=== PATIENT | female | born 1975 | race Caucasian/White ===

== ENCOUNTER → 2020-10-28 15:54 | Outpatient (CLI) | payer BC, SELFPAY ==
[2016-01-22 10:48] VITALS: BMI 32.0
[2020-10-28 16:00] LABS: Bacteria 0 SEEN /hpf (None Seen); Mucous, Urine 0 SEEN /hpf (<or=2+); Red Blood Cells-Urine 0 SEEN /hpf (0-5); Squamous Epithelial Cells - UA 0 SEEN /hpf (5-10); White Blood Cells 0 SEEN /hpf (0-5)
[2020-10-28 17:45] LABS: Absolute Lymphocyte Count 2.29 X10^3/uL (0.83-4.51); Basophil# 0.04 X10^3/uL; Basophil% 0.5 % (0-1); Eosinophil# 0.12 X10^3/uL; Eosinophils% 1.5 % (0-5); Hematocrit 39.1 % (37-47); Hemoglobin 12.9 g/dL (12.0-15.0); Lymphocyte # 2.29 X10^3/ul (4.0); Mean Corpuscular Hgb 29.7 pg (27.0-32.0); Mean Corpuscular Volume 90.1 fL (81-99); Mean Platelet Vol. 9.7 fl (6.2-12.0); Monocyte% 5.1 % (0-10); NRBC Flagged by Analyzer 0 % (0-5); Neutrophil # 5.03 X10^3/uL (2.7-7.7); Neutrophil % 63.6 % (47-70); Platelet Count 370 K/mm3 (150-450); RBC Distribution Width CV 12.8 % (11.6-14.6); RBC Distribution Width SD 42.6 fl (35.1-43.9); Red Blood Count 4.34 M/mm3 (4.2-5.4); White Blood Count 7.9 K/mm3 (4.4-11.0)
[2020-10-28 17:49] LABS: Color, Urine Yellow (Yellow); Glucose, Dipstick Normal (Normal); Ketone-Dipstick Negative (Negative); Leukocyte Esterase-Dipstick Negative /ul (Negative); Nitrite-Dipstick Negative (Negative); Occult Blood-Urine Negative /ul (Negative); Protein-Dipstick Negative (Negative); Specific Gravity, Urine 1.015 (1.002-1.030); Urine Bilirubin Dipstick Negative (Negative); Urine Clarity Clear (Clear); Urine Urobilinogen Normal (Normal)
[2020-10-28 18:24] LABS: ALB/GLOB Ratio 1.2 RATIO (0.9-2.4); AST(SGOT) 18 U/L (15-37); Alanine Aminotransfer ALT/SGPT 34 U/L (13-56); Alkaline Phosphatase 92 U/L (45-117); Anion Gap 7 (5-15); BUN 9 mg/dL (7-18); BUN/Creat Ratio 9.8 RATIO (10-20); Calcium,Total 9.2 mg/dL (8.5-10.1); Chloride 107 mmol/L (98-107); Cholesterol 211 mg/dL (200); Creatinine, Serum 0.91 mg/dL (0.55-1.02); EST Glomerular Filtration Rate 70 mL/min (>60); Est Glom Filt Rate - Afr Amer 85 mL/min (>60); Globulin 3.3 g/dL (2.2-4.2); Glucose 90 mg/dL (74-106); High Density Lipoprotein 36 mg/dL; Magnesium 2.1 mg/dL (1.6-2.6); Potassium 3.6 mmol/L (3.5-5.1); Protein, Total 7.3 g/dL (6.4-8.2); Sodium Level 141 mmol/L (136-145); Thyroid Stim Hormone (TSH) 0.63 uIU/mL (0.358-3.74); Triglycerides 244 mg/dL; Very Low Density Lipoprotein 49 mg/dL (5-40)
== END ==
PROVIDERS: PCP Family Medicine; Visit Provider Family Medicine
DX: I10 Essential (primary) hypertension (principal)
CPT/HCPCS: 80053; 80061; 81001; 83735; 84443; 85025

== ENCOUNTER → 2020-10-31 09:58 | Outpatient (CLI) | payer BC, SELFPAY ==
[2020-10-30 10:41] VITALS: BMI 37.0
--- NOTE | 2020-10-31 10:10 | US_ITS ---
STUDY: RENAL ULTRASOUND - COMPLETE REASON FOR EXAM: Female, 44 years old. HTN TECHNIQUE: Ultrasound evaluation of the kidneys was performed with real-time and static avitia-scale imaging. COMPARISON: None. FINDINGS: RIGHT KIDNEY: Normal location of the right kidney, which is normal in size. The right kidney measures 9.8 cm. There is a normal cortex of the right kidney. The renal cortex measures 1.6 cm. There is no right renal mass or cyst. There are no right renal calculi. There is no right hydronephrosis. DISTAL RIGHT URETER: There is non-visualization of the distal right ureter. There is no demonstrated right ureterovesical junction calculus. There is a visualized right ureteral jet. LEFT KIDNEY: Normal location of the left kidney, which is normal in size. The left kidney measures 11.3 cm. There is a normal cortex of the left kidney. The renal cortex measures 2.2 cm. There is no left renal mass or cyst. There are no left renal calculi. There is no left hydronephrosis. DISTAL LEFT URETER: There is non-visualization of the distal left ureter. There is no demonstrated left ureterovesical junction calculus. There is a visualized left ureteral jet. BLADDER: The distended urinary bladder has a volume of 260 ml. The There is a normal wall thickness of the distended urinary bladder. There is no demonstrated mass within the urinary bladder. There are no demonstrated bladder calculi. US/Kidney and Bladder IMPRESSION: Normal ultrasound of the kidneys and urinary bladder. Electronically Signed: Reinaldo Villafana MD at 14:00 EST Tel , Service support ,
== END ==
PROVIDERS: PCP Family Medicine; Visit Provider Family Medicine
DX: I10 Essential (primary) hypertension (principal)
CPT/HCPCS: 76770

== ENCOUNTER → 2020-11-11 06:48 | Outpatient (CLI) | payer BC, SELFPAY ==
[2020-10-30 10:41] VITALS: BMI 37.0
--- NOTE | 2020-11-11 06:51 | ECHOCS_ITS ---
Reason For Study: Dyspnea/SOB Procedure This was a 2D Doppler, Color Flow transthoracic echocardiogram. The study was technically difficult. Contrast injection was performed. Exam performed in department. Left Ventricle Normal LV size. Mild concentric left ventricular hypertrophy. Left ventricular systolic function is normal. The estimated ejection fraction is 65 %. Stage 1 diastolic dysfunction. No regional wall motion abnormalities noted. Right Ventricle Normal RV size. Normal systolic function. Atria Normal left atrium. Normal right atrium. Mitral Valve Normal mitral valve. Tricuspid Valve Normal tricuspid valve. Aortic Valve Normal aortic valve. Trisinus/trileaflet aortic valve. Pulmonic Valve Normal pulmonic valve. Great Vessels Normal aortic root. The pulmonary artery is normal size. Normal inferior vena cava. Pericardium/Pleural No pericardial effusion. Medication 22 gauge I.V. with prn adaptor inserted into left arm. Diluted definity 2ml given slow IV push to enhance endocardial definition. MMode/2D Measurements & Calculations LVIDd: 4.6 cm IVSd: 1.3 cm Ao root diam: 3.5 cm LVIDs: 3.2 cm LVPWd: 1.2 cm LA dimension: 3.7 cm FS: 30.4 % LAV(MOD-bp): 57.1 ml LA A4 area: 18.5 cm2 RA A4 area: 14.1 cm2 LAV(MOD-bp) Indexed: 26.7 ml/m2 LAV(MOD-sp2): 62.4 ml LAV(MOD-sp4): 49.6 ml Time Measurements MV dec time: 0.23 sec Doppler Measurements & Calculations MV E max dimitry: 76.2 cm/sec Lat Peak E' Dimitry: 8.4 cm/sec Med Peak E' Dimitry: 5.9 cm/sec MV A max dimitry: 102.3 cm/sec E/E' lat: 9.1 E/E' med: 12.8 MV E/A: 0.75 MV V2 max: 107.2 cm/sec MV P1/2t max dimitry: 81.5 cm/sec Ao V2 max: 145.3 cm/sec MV max P.6 mmHg MV P1/2t: 76.6 msec Ao max P.4 mmHg MV V2 mean: 63.3 cm/sec MV dec slope: 311.8 cm/sec2 MV mean P.9 mmHg MV V2 VTI: 22.6 cm MVA(P1/2t): 2.9 cm2 LV V1 max: 123.5 cm/sec PA V2 max: 90.6 cm/sec LV V1 max P.1 mmHg Interpretation Summary Normal LV size. Mild concentric left ventricular hypertrophy. Left ventricular systolic function is normal. The estimated ejection fraction is 65 %. Stage 1 diastolic dysfunction. Contrast injection was performed. Ordering Physician: yMron Flores Referring Physician: Mil Luna Performed By: Jose Carvalho RCS
--- NOTE | 2020-11-11 17:15 | STRESSREP ---
Stress Test Report Exercise myocardial perfusion stress test. 44-year-old lady with a history of hypertension and for preoperative cardiac evaluation. Stress protocol: Resting EKG demonstrates normal sinus rhythm with a rate of 78 bpm normal intervals are noted. The patient exercised according to the regular Amado protocol for a total duration of 6 minutes and 16 seconds. The maximum heart rate attained was 150 bpm which was 85% of max impacted heart rate the maximum workload was 7.3 metabolic equivalents. At rest there were no ST or T wave changes noted to suggest ischemia at peak exercise upsloping ST changes only were noted with did not meet the criteria for ischemia. No clinical angina was noted the test was terminated due to dyspnea. The resting blood pressure was 150/92 mmHg with a peak blood pressure of 210/72 mmHg. No clinical angina was noted. Myocardial perfusion protocol. 14.1 mCi of technetium 99m sestamibi was injected at rest. Patient exercised according to regular Amado protocol for 6 minutes and 16 seconds and at peak exercise 44.6 mCi of technetium 99m sestamibi was injected stress images were obtained stress and rest images were reconstructed in comparing the short axis vertical long and horizontal long axis. Gated images were also obtained. Perfusion SPECT analysis: Review of the stress images demonstrates normal uptake of tracer noted in all areas of the myocardium the resting images similarly demonstrate normal uptake of tracer noted in all areas of the myocardium. No areas of reversibility are noted to suggest ischemia. Gated SPECT analysis: The gated ejection fraction is noted to be 70%. Conclusion: Normal exercise myocardial perfusion stress test with no evidence of ischemia at a moderate workload. Preserved ejection fraction.
== END ==
PROVIDERS: PCP Family Medicine; Referring Provider Internal Medicine Cardiovascular Disease; Visit Provider Internal Medicine Cardiovascular Disease
DX: I10 Essential (primary) hypertension (principal); R06.02 Shortness of breath; R06.00 Dyspnea, unspecified
CPT/HCPCS: 78452; 93017; 93306; A9500; Q9957; A4216; C8929

== ENCOUNTER → 2020-11-13 08:55 | Outpatient (CLI) | payer BC, SELFPAY ==
[2020-10-30 10:41] VITALS: BMI 37.0
[2020-11-13 10:36] LABS: Anion Gap 7 (5-15); BUN 11 mg/dL (7-18); BUN/Creat Ratio 12.6 RATIO (10-20); Calcium,Total 9.3 mg/dL (8.5-10.1); Chloride 101 mmol/L (98-107); Creatinine, Serum 0.87 mg/dL (0.55-1.02); EST Glomerular Filtration Rate 74 mL/min (>60); Est Glom Filt Rate - Afr Amer 90 mL/min (>60); Glucose 103 mg/dL (74-106); Potassium 3.7 mmol/L (3.5-5.1); Sodium Level 137 mmol/L (136-145)
== END ==
PROVIDERS: PCP Family Medicine; Referring Provider Family Medicine; Visit Provider Family Medicine
DX: I10 Essential (primary) hypertension (principal)
CPT/HCPCS: 36415; 80048

== ENCOUNTER → 2020-11-14 08:54 | Outpatient (CLI) | payer BC, SELFPAY ==
[2020-10-30 10:41] VITALS: BMI 37.0
--- NOTE | 2020-11-14 08:56 | RDU_ITS ---
Reason For Study: HTN Right Renal Artery Left Renal Artery Right renal artery ostium Left renal artery ostium 146.7/35.2 136.3/30.1 RSV/EDV. PSV/EDV. Right renal artery proximal Left renal artery proximal PSV/EDV 157.2/34.3 PSV/EDV. 164.8/50.8 . Right renal artery mid 269.6/88.3 Left renal artery mid 137.4/44.3 PSV/EDV. PSV/EDV . Right renal artery distal Left renal artery distal 167.6/52.9 159.6/27.5 PSV/EDV. PSV/EDV. Right Renal Parenchyma Left Renal Parenchyma Upper Pole Medula 39.8/10.6 Left upper pole medulla 38.5/11.1 PSV/EDV. PSV/EDV . Right upper pole medulla EDR 0.27 . Left upper pole medulla EDR 0.29 . Right upper pole medulla R.I. Left upper pole medulla R.I. 0.71 . 0.73 . UP Cortex 23/8.4 PSV/EDV. Upper Ajith Cortx 17.9/6.9 PSV/EDV. Left upper pole cortex EDR 0.37 . Right upper pole cortex EDR 0.39 . Left upper pole cortex R.I. 0.63 . Right upper pole cortex R.I. 0.61 . Left lower Pole medulla 39.4/11.1 Right lower Pole medulla 36.1/11.3 PSV/EDV . PSV/EDV . Left lower pole medulla EDR 0.28 . Right lower pole medulla EDR 0.31 . Left lower pole medulla R.I. 0.72 . Right lower pole medulla R.I. Lower Pole Cortx 23.9/9.3 PSV/EDV. 0.69 . Left lower pole cortex EDR 0.39 . Lower Pole Cortex 19/6.9 PSV/EDV. Left lower pole cortex R.I. 0.61 . Right lower pole cortex EDR 0.36 . Left Renal Hilar Right lower pole cortex R.I. 0.64 . LT Hilar avg 75/23.2 PSV/EDV . Right Renal Hilar Left hilar acceleration time 50 Right Hilar avg 72/18.9 PSV/EDV. m/sec. Right hilar acceleration time 50 Left Renal Dimensions m/sec. Left kidney size 10.91 cm . Right Renal Dimensions Left cortical dimension 1.97 cm . Right kidney size 10.36 cm . Right cortical dimension 1.44 cm . Aorta Proximal abdominal aorta 1.61 x 1.64 cm . Proximal abdominal aorta peak systolic velocity is 113.3 cm/sec . Distal abdominal aorta 1.35 x 1.35 cm . Distal abdominal aorta peak systolic velocity is 106.7 cm/sec . VL/Renal Artery Duplex Ultrasound Interpretation Summary Right renal artery velocities are elevated. Left renal artery velocities are no rmal. Right renal artery appears >60% stenosis. Ordering Physician: Myron Flores Referring Physician: Mil Luna Performed By: Bhargavi Ngo RVT
== END ==
PROVIDERS: PCP Family Medicine; Referring Provider Family Medicine; Visit Provider Family Medicine
DX: I10 Essential (primary) hypertension (principal)
CPT/HCPCS: 93225; 93226; 93975

== ENCOUNTER → 2020-12-22 09:35 | Outpatient (CLI) | payer BC, SELFPAY ==
[2020-12-18 08:40] VITALS: BMI 35.5
[2020-12-22 12:17] LABS: Absolute Lymphocyte Count 2.02 X10^3/uL (0.83-4.51); Absolute Neutrophil Count 6.7 X10^3/uL (2.0-7.7); Basophil# 0.05 X10^3/uL; Basophil% 0.5 % (0-1); Eosinophil# 0.21 X10^3/uL; Eosinophils% 2.2 % (0-5); Hematocrit 36.3 % (37-47); Hemoglobin 11.3 g/dL (12.0-15.0); Lymphocyte # 2.02 X10^3/ul (0.83-4.51); Lymphocyte % 21.3 % (19-41); Mean Corp Hgb Conc 31.1 g/dL (32-36); Mean Corpuscular Hgb 29.5 pg (27.0-32.0); Mean Corpuscular Volume 94.8 fL (81-99); Monocyte# 0.52 X10^3/uL; Monocyte% 5.5 % (0-10); NRBC Flagged by Analyzer 0 % (0-5); Neutrophil # 6.66 X10^3/uL (2.7-7.7); Neutrophil % 70.1 % (47-70); Platelet Count 339 K/mm3 (150-450); RBC Distribution Width SD 44.8 fl (35.1-43.9); Red Blood Count 3.83 M/mm3 (4.2-5.4); White Blood Count 9.5 K/mm3 (4.4-11.0)
[2020-12-22 12:52] LABS: ALB/GLOB Ratio 1.1 RATIO (0.9-2.4); AST(SGOT) 15 U/L (15-37); Alanine Aminotransfer ALT/SGPT 25 U/L (13-56); Albumin, Serum 3.7 g/dL (3.2-5.0); Alkaline Phosphatase 110 U/L (45-117); Anion Gap 9 (5-15); BUN 9 mg/dL (7-18); Calcium,Total 9.2 mg/dL (8.5-10.1); Chloride 104 mmol/L (98-107); Creatinine, Serum 0.82 mg/dL (0.55-1.02); EST Glomerular Filtration Rate 80 mL/min (>60); Est Glom Filt Rate - Afr Amer 96 mL/min (>60); Globulin 3.5 g/dL (2.2-4.2); Glucose 107 mg/dL (74-106); Potassium 3.7 mmol/L (3.5-5.1); Protein, Total 7.2 g/dL (6.4-8.2); Sodium Level 139 mmol/L (136-145); Thyroid Stim Hormone (TSH) 0.69 uIU/mL (0.358-3.74)
== END ==
PROVIDERS: PCP Family Medicine; Visit Provider Family Medicine
DX: R60.9 Edema, unspecified (principal)
CPT/HCPCS: 36415; 80053; 84443; 85025

== ENCOUNTER → 2021-01-28 11:41 | Outpatient (CLI) | payer BC, SELFPAY ==
[2020-12-18 08:40] VITALS: BMI 35.5
[2021-01-28 15:09] LABS: Absolute Lymphocyte Count 1.91 X10^3/uL (0.83-4.51); Absolute Neutrophil Count 4.4 X10^3/uL (2.0-7.7); Basophil# 0.03 X10^3/uL; Basophil% 0.4 % (0-1); Eosinophil# 0.22 X10^3/uL; Eosinophils% 3.2 % (0-5); Hematocrit 37.4 % (37-47); Hemoglobin 12.2 g/dL (12.0-15.0); Lymphocyte # 1.91 X10^3/ul (0.83-4.51); Lymphocyte % 27.5 % (19-41); Mean Corp Hgb Conc 32.6 g/dL (32-36); Mean Corpuscular Hgb 29.4 pg (27.0-32.0); Mean Corpuscular Volume 90.1 fL (81-99); Mean Platelet Vol. 9.7 fl (6.2-12.0); Monocyte# 0.41 X10^3/uL; Monocyte% 5.9 % (0-10); NRBC Flagged by Analyzer 0 % (0-5); Neutrophil # 4.35 X10^3/uL (2.7-7.7); Neutrophil % 62.7 % (47-70); Platelet Count 387 K/mm3 (150-450); RBC Distribution Width CV 12.7 % (11.6-14.6); RBC Distribution Width SD 41.8 fl (35.1-43.9); Red Blood Count 4.15 M/mm3 (4.2-5.4); White Blood Count 6.9 K/mm3 (4.4-11.0)
[2021-01-28 15:24] LABS: Vitamin B12 423 pg/mL (211-911)
[2021-01-28 15:45] LABS: Ferritin 66 ng/mL (8-252); Iron 65 ug/dL (50-170); Iron Binding Capacity,Total 282 ug/dL (250-450)
== END ==
PROVIDERS: PCP Family Medicine; Referring Provider Family Medicine; Visit Provider Family Medicine
DX: D64.9 Anemia, unspecified (principal)
CPT/HCPCS: 36415; 82607; 82728; 82746; 83540; 83550; 85025

== ENCOUNTER 2021-02-18 10:00 | Outpatient (RCR) | payer BC, SELFPAY ==
[2020-12-18 08:40] VITALS: BMI 35.5
--- NOTE | 2021-01-12 14:37 | HP.PTEVAL ---
Patient's Visit Information SHANTE KNOWLES is a 45 year old F referred to Physical Therapy by Dr. Kev Bhardwaj MD with a diagnosis of PSEUDARTHROSIS AFTER FUSION OR ARTHRODESIS,OTHER SPONDYLOSIS ,LUMBAR. Date of Evaluation: 01/12/21 Physical Therapist: Ezequiel Henry, PT, Cert MDT, OCS - Visit Plan Frequency: 1-2x /Week Duration: 4 Weeks Plan: S/P REVISION OF LUMBAR FUSION,PATIENT HAS H/O OF 4 OTHER LUMBAR SURGERIES. PT INTERVENTIONS INITIALLY AQUATIC PT FOR DLS,POSTURAL EX'S ,LE STRENGTHENING AND FLEXIBILITY THEN PROGRESS LAND THERAPY - Subjective This 45 y/o female presents to physical therapy with lumbar surgery on October done Dr Bhardwaj at [facility]. Patient d/c November 22 with brace and used fww. Patient seen removed flora and last visit DECEMBER 29 PT. Patient had lumbar fusion removed hardware and replaced using anterior/ posterior.Patient had brace on about 1 month in 08/23. .Dr wanted Aquatic then transition land. Patient has had 4 other surgeries in past at [facility] at 2008,LUMBAR disectomy,2010 revision lumbar disectomy,2014 lumbar fusion,2018 lumbar fusion .C/O parathesia/tingling feet. Bowel/bladder -. Coughing/sneezing -. Nacro PRN. Patient sleeping okay. Patient aggraveting factors extended walking,standing ,unable to bend and lift. Alleviating factors MEDS. Patient condtion affects QOL and function with ADLS'S. SOCIAL: . VOCATION: unemployed - Pain Bilateral Back Pain Intensity (Out of 10): 3 Pain Intensity Range: 10 - Objective POSTURE: mild posture. NEURO: denies parathesia/tingling,reflexes L3-4,L4-5,L5-S1 1/3. PALAPTION: tender lumbar paraspinlas. LUMBAR ROM: flexion mod loss,extension mod/severe loss,side glides mod loss. FLEXABILITY: hams mod tight. SYMMTRIES : align. MMT: quads/hams 4/5,hip flexion 4-/5,ankle 4/5 - Special Tests L/S Slump test left side: Negative L/S Slump test right side: Negative L/S Left Straight Leg Raise: Negative L/S Right Straight Leg Raise: Negative - Goals Goal 1:: I with Aquatic PT and HEP Goal Time Frame: 6-8 Weeks Goal 2:: Patient to improve posture for ADL'S Goal Time Frame: 6-8 Weeks Goal 3:: Patient to improve lumbar ROM for function of recovery Goal Time Frame: 6-8 Weeks Goal 4:: Patient to improve back owesty scoreby 5 points or > to improve function. Goal Time Frame: 6-8 Weeks Goal 5:: Patient to decrease lumbar pain by 50% or greater to improve function. Goal Time Frame: 6-8 Weeks - Rehabilitation Potential Physical Therapy Diagnosis: This patient has multiple comorbities to influence condition with 4 other back surgeries along with recent lumbar surgery with revision and removal of fusion with perales,decrease ROM,strength,endurance and function thus will benifit from skilled PT to address these impairments Rehabilitation Potential: Good - Anticipated Interventions For the Purpose of:: To decrease pain, To increase ROM, To improve muscle performance and motor function, To improve ability to perform ADL's, To increase tolerance to activity/condition/position, To improve performance and independence with ADL's, To decrease level of supervision to perform tasks, To improve health of tissue, To decrease soft tissue restriction, To increase flexibility/ROM, To improve safety with gait, To reduce risk of recurrence, To improve health and function, To improve ability to perform tasks related to life management Therapeutic Exercise to Include: Strength training, Endurance training, Balance training, Body mechanics, Postural training, Dynamic Lumbar Stabilization Comment: BLE For the Purpose of:: To decrease pain, To improve muscle performance and motor function, To improve ability to perform ADL's, To increase tolerance to activity/condition/position, To improve ability of physical actions for home/community/work/leisure, To improve gait and locomotor functions, To improve health of tissue, To decrease soft tissue restriction, To increase flexibility/ROM, To improve balance, To assume or resume ADL's, To reduce risk of recurrence, To improve ability to perform tasks related to life management, To improve tolerance to ADL's Thank you for the opportunity to evaluate your patient. For Medicare and Medicare HMO plans, please review the plan of care and approve it. It will need to be FAXED BACK to us at [phone] for Medicare purposes. For Medicare only, by signing this I certify the plan of care. Please let me know if there are questions or concerns regarding this plan of care. Physician Signature: Date:
--- NOTE | 2021-01-12 14:40 | HP.PTEVAL_ITS ---
Patient's Visit Information SHANTE KNOWLES is a 45 year old F referred to Physical Therapy by Dr. Kev Bhardwaj MD with a diagnosis of PSEUDARTHROSIS AFTER FUSION OR ARTHRODESIS,OTHER SPONDYLOSIS ,LUMBAR. Date of Evaluation: 01/12/21 Physical Therapist: Ezequiel Henry, PT, Cert MDT, OCS - Visit Plan Frequency: 2x /Week Duration: 6 Weeks Plan: S/P REVISION OF LUMBAR FUSION,PATIENT HAS H/O OF 4 OTHER LUMBAR SURGERIES. PT INTERVENTIONS INITIALLY AQUATIC PT FOR DLS,POSTURAL EX'S ,LE STRENGTHENING AND FLEXIBILITY THEN PROGRESS LAND THERAPY - Subjective This 45 y/o female presents to physical therapy with lumbar surgery on October done Dr Bhardwaj at [facility]. Patient d/c November 22 with brace and used fww. Patient seen DR harris flora and last visit DECEMBER 29 PT. Patient had lumbar fusion removed hardware and replaced using anterior/ posterior.Patient had brace on about 1 month in 08/23. .Dr wanted Aquatic then transition land. Patient has had 4 other surgeries in past at [facility] at 2008,LUMBAR disectomy,2010 revision lumbar disectomy,2014 lumbar fusion,2018 lumbar fusion .C/O parathesia/tingling feet. Bowel/bladder -. Coughing/sneezing -. Nacro PRN. Patient sleeping okay. Patient aggraveting factors extended walking,standing ,unable to bend and lift. Alleviating factors MEDS. Patient condtion affects QOL and function with ADLS'S. SOCIAL: . VOCATION: unemployed - Pain Bilateral Back Pain Intensity (Out of 10): 3 Pain Intensity Range: 10 - Objective POSTURE: mild posture. NEURO: denies parathesia/tingling,reflexes L3-4,L4-5,L5-S1 1/3. PALAPTION: tender lumbar paraspinlas. LUMBAR ROM: flexion mod loss,extension mod/severe loss,side glides mod loss. FLEXABILITY: hams mod tight. SYMMTRIES : align. MMT: quads/hams 4/5,hip flexion 4-/5,ankle 4/5 - Special Tests L/S Slump test left side: Negative L/S Slump test right side: Negative L/S Left Straight Leg Raise: Negative L/S Right Straight Leg Raise: Negative - Goals Goal 1:: I with Aquatic PT and HEP Goal Time Frame: 6-8 Weeks Goal 2:: Patient to improve posture for ADL'S Goal Time Frame: 6-8 Weeks Goal 3:: Patient to improve lumbar ROM for function of recovery Goal Time Frame: 6-8 Weeks Goal 4:: Patient to improve back owesty scoreby 5 points or > to improve function. Goal Time Frame: 6-8 Weeks Goal 5:: Patient to decrease lumbar pain by 50% or greater to improve function. Goal Time Frame: 6-8 Weeks - Rehabilitation Potential Physical Therapy Diagnosis: This patient has multiple comorbities to influence condition with 4 other back surgeries along with recent lumbar surgery with revision and removal of fusion with perales,decrease ROM,strength,endurance and function thus will benifit from skilled PT to address these impairments Rehabilitation Potential: Good - Anticipated Interventions For the Purpose of:: To decrease pain, To increase ROM, To improve muscle performance and motor function, To improve ability to perform ADL's, To increase tolerance to activity/condition/position, To improve performance and independence with ADL's, To decrease level of supervision to perform tasks, To improve health of tissue, To decrease soft tissue restriction, To increase flexibility/ROM, To improve safety with gait, To reduce risk of recurrence, To improve health and function, To improve ability to perform tasks related to life management Therapeutic Exercise to Include: Strength training, Endurance training, Balance training, Body mechanics, Postural training, Dynamic Lumbar Stabilization Comment: BLE For the Purpose of:: To decrease pain, To improve muscle performance and motor function, To improve ability to perform ADL's, To increase tolerance to activity/condition/position, To improve ability of physical actions for home/community/work/leisure, To improve gait and locomotor functions, To improve health of tissue, To decrease soft tissue restriction, To increase flexibility/ROM, To improve balance, To assume or resume ADL's, To reduce risk of recurrence, To improve ability to perform tasks related to life management, To improve tolerance to ADL's Thank you for the opportunity to evaluate your patient. For Medicare and Medicare HMO plans, please review the plan of care and approve it. It will need to be FAXED BACK to us at [phone] for Medicare purposes. For Medicare only, by signing this I certify the plan of care. Please let me know if there are questions or concerns regarding this plan of care. Physician Signature: Date:
--- NOTE | 2021-05-26 09:58 | HP.PT.NRP ---
SHANTE KNOWLES was seen in my office for initial evaluation on 01/12/21. The following Plan of Care was established for this patient: Initial Frequency: 2x /Week Initial Duration: 6 Weeks For the Purpose of:: To decrease pain, To increase ROM, To improve muscle performance and motor function, To improve ability to perform ADL's, To increase tolerance to activity/condition/position, To improve performance and independence with ADL's, To decrease level of supervision to perform tasks, To improve health of tissue, To decrease soft tissue restriction, To increase flexibility/ROM, To improve safety with gait, To reduce risk of recurrence, To improve health and function, To improve ability to perform tasks related to life management Therapeutic Exercise to Include: Strength training, Endurance training, Balance training, Body mechanics, Postural training, Dynamic Lumbar Stabilization For the Purpose of:: To decrease pain, To improve muscle performance and motor function, To improve ability to perform ADL's, To increase tolerance to activity/condition/position, To improve ability of physical actions for home/community/work/leisure, To improve gait and locomotor functions, To improve health of tissue, To decrease soft tissue restriction, To increase flexibility/ROM, To improve balance, To assume or resume ADL's, To reduce risk of recurrence, To improve ability to perform tasks related to life management, To improve tolerance to ADL's This patient was last seen in our office . Pertinent comments regarding their Physical therapy will appear below: Patient seen for Aquatic therapy for lumbar pain. At this point I will be discontinuing this patient from physical therapy. I would be happy to see this patient again in the future if found appropriate by the physician. Thank you! Ezequiel Henry, PT, Cert MDT, OCS Balance/Gait/Functional tests - Balance/Special Test Scores Oswestry Low Back Score: 7
== END 2021-02-18 19:00 | disposition home or self-care (01) ==
LOC: PT 10:00
PROVIDERS: PCP Family Medicine; Referring Provider Orthopaedic Surgery; Visit Provider Orthopaedic Surgery
DX: M96.0 Pseudarthrosis after fusion or arthrodesis (principal); M47.896 Other spondylosis, lumbar region
CPT/HCPCS: 97113; 97162

== ENCOUNTER → 2021-02-26 12:13 | Outpatient (CLI) | payer BC, SELFPAY ==
[2021-01-29 09:49] VITALS: BMI 37.8
[2021-02-26 13:39] LABS: Absolute Lymphocyte Count 2.19 X10^3/uL (0.83-4.51); Absolute Neutrophil Count 8.2 X10^3/uL (2.0-7.7); Basophil# 0.03 X10^3/uL; Basophil% 0.3 % (0-1); Eosinophil# 0.16 X10^3/uL; Eosinophils% 1.4 % (0-5); Hematocrit 37.7 % (37-47); Hemoglobin 12.1 g/dL (12.0-15.0); Lymphocyte # 2.19 X10^3/ul (0.83-4.51); Lymphocyte % 19.7 % (19-41); Mean Corp Hgb Conc 32.1 g/dL (32-36); Mean Corpuscular Hgb 29.1 pg (27.0-32.0); Mean Corpuscular Volume 90.6 fL (81-99); Mean Platelet Vol. 9.6 fl (6.2-12.0); Monocyte# 0.48 X10^3/uL; Monocyte% 4.3 % (0-10); NRBC Flagged by Analyzer 0 % (0-5); Neutrophil # 8.21 X10^3/uL (2.7-7.7); Neutrophil % 73.8 % (47-70); Platelet Count 363 K/mm3 (150-450); RBC Distribution Width CV 13.2 % (11.6-14.6); RBC Distribution Width SD 43.9 fl (35.1-43.9); Red Blood Count 4.16 M/mm3 (4.2-5.4); White Blood Count 11.1 K/mm3 (4.4-11.0)
[2021-02-26 13:46] LABS: Erythrocyte Sedimentation Rate 16 mm/hr (0-30)
== END ==
PROVIDERS: PCP Family Medicine; Referring Provider Orthopaedic Surgery; Visit Provider Orthopaedic Surgery
DX: M47.896 Other spondylosis, lumbar region (principal)
CPT/HCPCS: 36415; 85025; 85652; 86140

== ENCOUNTER → 2021-03-10 08:21 | Outpatient (CLI) | payer BC, SELFPAY ==
[2021-01-29 09:49] VITALS: BMI 37.8
[2021-03-10 10:07] LABS: Absolute Lymphocyte Count 2.13 X10^3/uL (0.83-4.51); Absolute Neutrophil Count 5.9 X10^3/uL (2.0-7.7); Basophil# 0.04 X10^3/uL; Basophil% 0.5 % (0-1); Eosinophil# 0.13 X10^3/uL; Eosinophils% 1.5 % (0-5); Hematocrit 36.3 % (37-47); Hemoglobin 11.6 g/dL (12.0-15.0); Lymphocyte # 2.13 X10^3/ul (0.83-4.51); Lymphocyte % 24.4 % (19-41); Mean Corpuscular Hgb 29.4 pg (27.0-32.0); Mean Corpuscular Volume 91.9 fL (81-99); Mean Platelet Vol. 9.9 fl (6.2-12.0); Monocyte# 0.48 X10^3/uL; Monocyte% 5.5 % (0-10); NRBC Flagged by Analyzer 0 % (0-5); Neutrophil # 5.92 X10^3/uL (2.7-7.7); Neutrophil % 67.8 % (47-70); Platelet Count 340 K/mm3 (150-450); RBC Distribution Width CV 13.3 % (11.6-14.6); RBC Distribution Width SD 44.6 fl (35.1-43.9); Red Blood Count 3.95 M/mm3 (4.2-5.4); White Blood Count 8.7 K/mm3 (4.4-11.0)
[2021-03-10 10:23] LABS: AST(SGOT) 14 U/L (15-37); Alanine Aminotransfer ALT/SGPT 28 U/L (13-56); Albumin, Serum 3.5 g/dL (3.2-5.0); Alkaline Phosphatase 102 U/L (45-117); Anion Gap 5 (5-15); BUN 11 mg/dL (7-18); BUN/Creat Ratio 13.2 RATIO (10-20); Calcium,Total 8.6 mg/dL (8.5-10.1); Chloride 105 mmol/L (98-107); Cholesterol 127 mg/dL (200); Creatinine, Serum 0.83 mg/dL (0.55-1.02); EST Glomerular Filtration Rate 78 mL/min (>60); Est Glom Filt Rate - Afr Amer 95 mL/min (>60); Globulin 3.5 g/dL (2.2-4.2); Glucose 108 mg/dL (74-106); High Density Lipoprotein 35 mg/dL; Potassium 3.8 mmol/L (3.5-5.1); Sodium Level 137 mmol/L (136-145); Triglycerides 278 mg/dL; Very Low Density Lipoprotein 56 mg/dL (5-40)
[2021-03-10 10:26] LABS: Microalbumin,Random Urine 11.4 mg/L (NO RANGE EST.); Microalbumin:Creatinine Ratio 8.9 mg/g CRE (<30 mg/g CRE)
== END ==
PROVIDERS: PCP Family Medicine; Visit Provider Family Medicine
DX: I10 Essential (primary) hypertension (principal); I70.1 Atherosclerosis of renal artery
CPT/HCPCS: 80053; 80061; 82043; 82570; 85025

== ENCOUNTER → 2021-03-11 17:19 | Outpatient (CLI) | payer BC, SELFPAY ==
[2021-01-29 09:49] VITALS: BMI 37.8
== END ==
PROVIDERS: PCP Family Medicine; Referring Provider Podiatrist Foot & Ankle Surgery; Visit Provider Podiatrist Foot & Ankle Surgery
DX: L60.0 Ingrowing nail (principal)
CPT/HCPCS: 87070; 87186; 87205

== ENCOUNTER 2021-04-29 06:49 | Day surgery (SDC) | payer BC, SELFPAY ==
[2021-01-29 09:49] VITALS: BMI 37.8
[2021-04-28 11:04] VITALS: BMI 39.2
--- NOTE | 2021-04-29 07:04 | HP.PCM_ITS ---
History and Physical Date of Admission: 04/29/21 Intake Visit Reasons: update h&p renal artery stenting 9-8 Chief Complaint: update H&P for ELSIE Pals Nurse Required: No Is patient in pain?: No Allergies azithromycin [From Zithromax Z-[place]] Allergy (Verified 04/22/21 09:06) Hives latex Allergy (Verified 04/22/21 09:06) Rash Medications metoprolol succinate 100 mg tablet,extended release 24 hr 100 mg PO DAILY 10/29/20 [History Confirmed 04/22/21] omeprazole 40 mg capsule,delayed release 40 mg PO DAILY 10/29/20 [History Confirmed 04/22/21] hydrochlorothiazide 25 mg tablet 25 mg PO DAILY 10/30/20 [History Confirmed 04/22/21] amlodipine 10 mg tablet 10 mg PO DAILY 12/12/20 [History Confirmed 04/22/21] aspirin 81 mg tablet,delayed release 81 mg PO DAILY 12/12/20 [History Confirmed 04/22/21] lisinopril 10 mg tablet 10 mg PO DAILY 12/12/20 [History Confirmed 04/22/21] rosuvastatin 20 mg tablet 20 mg PO DAILY 12/12/20 [History Confirmed 04/22/21] polyethylene glycol 3350 17 gram/dose oral powder 17 g PO TID g 12/18/20 [History Confirmed 04/22/21] Is last menstrual period known: No Post menopausal: No Patient : No PFSH Medical History Essential hypertension Heartburn Hyperlipidemia MEENA (obstructive sleep apnea) Right renal artery stenosis Surgical History History of back surgery History of carpal tunnel surgery History of cholecystectomy History of myringotomy History of total hysterectomy Family History Mother Myocardial infarction, Onset Age: 53 Hypertension Father Hypertension Brother Heart disease Diabetes Social History Smoking Status: Never smoker alcohol intake: current details: drinks wine substance use type: does not use caffeine: Yes Type: coffee Number of servings: 1 HPI HPI HPI: SHANTE KNOWLES, is a 45 F who presents to the office today for an update history and physical for renal artery stenosis. Patient is recovering from recent back surgery. She has been cleared to proceed with renal artery stenting. Patient denies other recent hospitalizations or illnesses. She denies complications with anesthesia. She denies lightheadedness/dizziness/chest pain. She denies pulmonary history. She has been following with PCP for malignant hypertension. She is maintained on daily 81 mg aspirin and has been placed on cholesterol medication. Patient's previous history per Dr. Alarcon: SHANTE KNOWLES, is a 45 F who presents to the office today for surgical consultation regarding malignant hypertension and suspected right renal artery stenosis. The patient is referred by Dr. Myron Flores in the Dr Mil Luna copy of my surgical consult recommendations will return to them. The patient thinks that starting at age 30 is when she was noted to be hypertensive. She had presented with headache at that time. She was placed on metoprolol by her primary care physician. She then states that over the past 15 years she was simply maintained on the metoprolol. She remained mildly hypertensive. She would go into drugstores and typically would run a proximal 184/90. More recently she changed primary care physicians to Dr Mil Luna and a more aggressive approach was taken. She did have a cardiac stress test in preparation for extensive back surgery. There was no evidence of ischemia. On November 14, 2020 at the [facility] because of malignant hypertension she had renal artery duplex exam. The right mid renal artery had a peak systolic velocity of 269 cm second flow with an end-diastolic velocity of 88 felt to be consistent with greater than 60% stenosis. It is of note that her aortic velocity proximally was 113 cm second peak systolic flow and distally 106 cm second peak cephalic so the renal artery aortic ratio was invalidated. The patient's mother had hypertension and heart disease she is . The patient denies diabetes. She is aware that she has a mild cholesterol problem and she is on rosuvastatin. She denies myocardial infarction or stroke. She now is maintained on 4 different antihypertensives: Hydrochlorothiazide and lisinopril and metoprolol and amlodipine Blood pressure today is 139/83 The patient is only 4 weeks status post extensive redo back surgery that lasted 12 hours. She is in an extensive brace. She states that she is not able to do without the brace. She states that she could not lie supine on the table with the brace off [facility] [address] [place] [address] Renal Artery Duplex Ultrasound 11/14/20 0907 MR#: [id number] Name: SHANTE KNOWLESRep #:[id number] : 1975 44From: Paolo Saenz MD Attending Dr: Dr. Mil Luna, MDStatus: REG CLI Ordering Dr: Myron Flores MDDate: 11/14/20 Location:CVSSex:FC Admitted: Reason For Study: HTN Right Renal Artery Left Renal Artery Right renal artery ostium Left renal artery ostium 146.7/35.2 136.3/30.1 RSV/EDV. PSV/EDV. Right renal artery proximal Left renal artery proximal PSV/EDV 157.2/34.3 PSV/EDV. 164.8/50.8 . Right renal artery mid 269.6/88.3 Left renal artery mid 137.4/44.3 PSV/EDV. PSV/EDV . Right renal artery distal Left renal artery distal 167.6/52.9 159.6/27.5 PSV/EDV. PSV/EDV. Right Renal Parenchyma Left Renal Parenchyma Upper Pole Medula 39.8/10.6 Left upper pole medulla 38.5/11.1 PSV/EDV. PSV/EDV . Right upper pole medulla EDR 0.27 . Left upper pole medulla EDR 0.29 . Right upper pole medulla R.I. Left upper pole medulla R.I. 0.71 . 0.73 . UP Cortex 23/8.4 PSV/EDV. Upper Ajith Cortx 17.9/6.9 PSV/EDV. Left upper pole cortex EDR 0.37 . Right upper pole cortex EDR 0.39 . Left upper pole cortex R.I. 0.63 . Right upper pole cortex R.I. 0.61 . Left lower Pole medulla 39.4/11.1 Right lower Pole medulla 36.1/11.3 PSV/EDV . PSV/EDV . Left lower pole medulla EDR 0.28 . Right lower pole medulla EDR 0.31 . Left lower pole medulla R.I. 0.72 . Right lower pole medulla R.I. Lower Pole Cortx 23.9/9.3 PSV/EDV. 0.69 . Left lower pole cortex EDR 0.39 . Lower Pole Cortex 19/6.9 PSV/EDV. Left lower pole cortex R.I. 0.61 . Right lower pole cortex EDR 0.36 . Left Renal Hilar Right lower pole cortex R.I. 0.64 . LT Hilar avg 75/23.2 PSV/EDV . Right Renal Hilar Left hilar acceleration time 50 Right Hilar avg 72/18.9 PSV/EDV. m/sec. Right hilar acceleration time 50 Left Renal Dimensions m/sec. Left kidney size 10.91 cm . Right Renal Dimensions Left cortical dimension 1.97 cm . Right kidney size 10.36 cm . Right cortical dimension 1.44 cm . Aorta Proximal abdominal aorta 1.61 x 1.64 cm . Proximal abdominal aorta peak systolic velocity is 113.3 cm/sec . Distal abdominal aorta 1.35 x 1.35 cm . Distal abdominal aorta peak systolic velocity is 106.7 cm/sec . VL/Renal Artery Duplex Ultrasound Interpretation Summary Right renal artery velocities are elevated. Left renal artery velocities are normal. Right renal artery appears >60% stenosis. Ordering Physician: Myron Flores Referring Physician: Mil Luna Performed By: Bhargavi Ngo RVT 11/26/20 0850 Date Paolo Saenz MD ROS General General: Yes fatigue; No weight change, appetite, colon cancer, breast cancer or weakness HEENT HEENT: No difficulty swallowing, eye injury, eye surgery, swollen glands or hoarseness Endo Endocrine: No thyroid disease, diabetes mellitus, thyroid cancer, Hair loss, heat intolerance or cold intolerance Cardio Cardiovascular: Yes high blood pressure; No murmur, pacemaker, heart disease, atrial fibrillation, heart attack, heart stent, palpitations, shortness of breat with exertion or chest pain Psych Psychiatric: No depression, anxiety or hearing voices Resp Respiratory: No shortness of breath, Yes sleep apnea, No cough, No COPD, No asthma, No emphysema and No wheezing Gastro Gastrointestinal: No abdominal pain, No nausea or vomiting, No diarrhea, No constipation, No blood in stool, Yes acid reflux, No hemorrhoids, No ulcers, No gallbladder problem and No black,tarry stools Jeff Hematologic: No blood thinners, No blood disorders, No bleeding, No anemia and No blood clots Neuro Neurologic: No weakness Exam Const General: cooperative, healthy appearing, comfortable and no acute distress HENMT Head: normal to inspection Eyes General: appearance normal, both eyes and all related structures Neck Neck: normal visual inspection Neck mass: No Resp Effort & Inspection: normal respiratory effort Auscultation: clear to auscultation bilaterally Cardio Rate: regular rate Rhythm: regular rhythm GI Inspection: normal to inspection and obesity Palpation: soft Auscultation: normal bowel sounds Other: Bilateral femoral pulses- 3+ Musc Cervical Spine: normal cervical lordosis Skin General: no rashes or lesions noted Neuro General: no focal motor deficits and CN's II-XI intact bilaterally Extrem General: normal to inspection Psych Appearance: grossly normal Affect: normal affect Assessment and Plan Assessment and Plan (1) Right renal artery stenosis: Status: Acute Plan - Vickie HERNANDES, PA-C: Dr. Alarcon will plan to perform an aortogram with selective renal arterial catheterization with imaging and possible right unilateral or even bilateral renal artery angioplasty and possible stenting. Procedure details, risks and benefits have been reviewed. Patient has had the opportunity to ask and have questions answered. Patient verbally understands and agrees with the plan. She will continue her aspirin. I have re-examined the patient. There are no clinical changes since date of ex am. Brody Alarcon M.D., F.A.C.S.
[2021-04-29 07:10] LABS: Hematocrit 36.2 % (37-47); Hemoglobin 11.9 g/dL (12.0-15.0); Mean Corp Hgb Conc 32.9 g/dL (32-36); Mean Corpuscular Hgb 30.2 pg (27.0-32.0); Mean Corpuscular Volume 91.9 fL (81-99); Mean Platelet Vol. 9.5 fl (6.2-12.0); Platelet Count 326 K/mm3 (150-450); RBC Distribution Width CV 13.1 % (11.6-14.6); RBC Distribution Width SD 43.3 fl (35.1-43.9); Red Blood Count 3.94 M/mm3 (4.2-5.4); White Blood Count 8.9 K/mm3 (4.4-11.0)
[2021-04-29 07:23] LABS: Anion Gap 3 (5-15); BUN 11 mg/dL (7-18); Calcium,Total 8.7 mg/dL (8.5-10.1); Chloride 107 mmol/L (98-107); Creatinine, Serum 0.79 mg/dL (0.55-1.02); EST Glomerular Filtration Rate 83 mL/min (>60); Est Glom Filt Rate - Afr Amer 101 mL/min (>60); Glucose 128 mg/dL (74-106); Potassium 3.7 mmol/L (3.5-5.1); Sodium Level 139 mmol/L (136-145)
--- NOTE | 2021-04-29 09:03 | PCM.OPRPT ---
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 45-year-old female was taken to the special procedures lab placed upon the table. She received 50 mcg of fentanyl milligram Versed. Bilateral groins were sterilely prepped draped. Ultrasound was used to identify the right common femoral artery. Under ultrasound guidance 2% lidocaine was instilled. A total of 8 cc was used. Then under ultrasound guidance a micropuncture needle was inserted. Micropuncture wire inserted. Micropuncture sheath inserted 035 J-wire was inserted for short Kyrgyz 6 7 Kyrgyz sheath was inserted. Then using an [address] was able to place universal flush catheter into the proximal abdominal aorta. A AP aortogram was obtained using Visipaque contrast a rate of 15 cc a second 10 cc I then reposition the catheter and obtained a second aortogram 15 cc a second for 15 cc. There is evidence of an accessory right superior renal artery with a main right renal artery and a left single renal artery. No clear stenosis. I then switched out for a Sos Omni 0 and selectively gained access to the orifice of the right accessory renal artery and the right main renal artery and the left renal artery using a floppy Glidewire and the sauce catheter. Hand-injection performed. This demonstrated widely patent renal arteries with no evidence of hemodynamically significant stenosis. The procedure was completed by removing the Sos Omni catheter. A Perclose device was placed through the right groin and successfully and easily deployed. There was immediate hemostasis. There remain 2+ right popliteal DP and PT pulses. No apparent complication. Images demonstrate a widely patent abdominal aorta and common iliac internal iliacs. Accessory right superior renal artery. That plus of the selective views demonstrate widely patent bilateral main renal arteries and and superior accessory right renal artery. It is of note that the SMA was selectively cannulated cannulated during the procedure incidentally and had no significant disease. The patient was taken back to the recovery area in satisfactory condition apparent complication Brody Alarcon M.D., F.A.C.SMonica Surgeon: Brody Alarcon Type of Anesthesia: IV Sedation and Local
== END 2021-04-29 10:35 | disposition home or self-care (01) ==
PROVIDERS: PCP Family Medicine; Referring Provider Surgery; Visit Provider Surgery
DX: I10 Essential (primary) hypertension (principal); K21.9 Gastro-esophageal reflux disease without esophagitis; E78.5 Hyperlipidemia, unspecified; G47.33 Obstructive sleep apnea (adult) (pediatric); Z79.82 Long term (current) use of aspirin; Z79.899 Other long term (current) drug therapy
CPT/HCPCS: 36252; 36415; 76937; 80048; 85027; 99152; 99153; J7030; J7040; Q9967; C1760; C1769

== ENCOUNTER 2021-09-07 17:46 | Outpatient (CLI) | payer BC, SELFPAY | END 2021-09-07 23:59 | disposition short-term general hospital (02) | PROVIDERS: PCP Family Medicine; Visit Provider Family Medicine | DX: B34.9 Viral infection, unspecified (principal) | CPT/HCPCS: 87635; U0003; U0005 ==

== ENCOUNTER 2021-10-21 15:57 | Outpatient (CLI) | payer BC, SELFPAY ==
[2021-10-21 17:47] LABS: Absolute Lymphocyte Count 2.94 X10^3/uL (0.83-4.51); Absolute Neutrophil Count 7.5 X10^3/uL (2.0-7.7); Basophil# 0.05 X10^3/uL; Basophil% 0.4 % (0-1); Eosinophil# 0.17 X10^3/uL; Eosinophils% 1.5 % (0-5); Hematocrit 36.2 % (37-47); Hemoglobin 12.3 g/dL (12.0-15.0); Lymphocyte # 2.94 X10^3/ul (0.83-4.51); Lymphocyte % 26.3 % (19-41); Mean Corpuscular Volume 91.2 fL (81-99); Mean Platelet Vol. 9.9 fl (6.2-12.0); Monocyte# 0.53 X10^3/uL; Monocyte% 4.7 % (0-10); NRBC Flagged by Analyzer 0 % (0-5); Neutrophil # 7.45 X10^3/uL (2.7-7.7); Neutrophil % 66.7 % (47-70); Platelet Count 346 K/mm3 (150-450); RBC Distribution Width CV 13.1 % (11.6-14.6); RBC Distribution Width SD 43.2 fl (35.1-43.9); Red Blood Count 3.97 M/mm3 (4.2-5.4); White Blood Count 11.2 K/mm3 (4.4-11.0)
[2021-10-21 18:15] LABS: ALB/GLOB Ratio 1.1 RATIO (0.9-2.4); AST(SGOT) 19 U/L (15-37); Alanine Aminotransfer ALT/SGPT 31 U/L (13-56); Albumin, Serum 3.7 g/dL (3.2-5.0); Alkaline Phosphatase 106 U/L (45-117); Anion Gap 7 (5-15); BUN 11 mg/dL (7-18); BUN/Creat Ratio 13.6 RATIO (10-20); Calcium,Total 8.3 mg/dL (8.5-10.1); Chloride 103 mmol/L (98-107); Creatinine, Serum 0.81 mg/dL (0.55-1.02); EST Glomerular Filtration Rate 81 mL/min (>60); Est Glom Filt Rate - Afr Amer 97 mL/min (>60); Globulin 3.4 g/dL (2.2-4.2); Glucose 98 mg/dL (74-106); Potassium 3.4 mmol/L (3.5-5.1); Protein, Total 7.1 g/dL (6.4-8.2); Sodium Level 137 mmol/L (136-145); T4 Free Direct 0.84 ng/dL (0.76-1.46); Thyroid Stim Hormone (TSH) 0.46 uIU/mL (0.358-3.74)
[2021-10-21 18:52] LABS: Vitamin B12 419 pg/mL (211-911); Vitamin D,25 Hydroxy 18.2 ng/mL
== END 2021-10-21 23:59 | disposition home or self-care (01) ==
LOC: MFPLAB 15:58
PROVIDERS: PCP Family Medicine; Referring Provider Family Medicine; Visit Provider Family Medicine
DX: R53.83 Other fatigue (principal)
CPT/HCPCS: 36415; 80053; 82306; 82607; 84439; 84443; 85025

== ENCOUNTER → 2022-02-24 | Outpatient (CLI) | payer BC, SELFPAY ==
--- NOTE | 2022-02-24 09:10 | RAD_ITS ---
STUDY: X-RAY - LEFT WRIST REASON FOR EXAM: Female, 46 years old. Left wrist tendon cyst TECHNIQUE: 3 view(s) of the wrist were obtained. COMPARISON: None. FINDINGS: Normal visualized distal radius and ulna. Normal radiocarpal articulation. Normal distal radioulnar articulation. Normal carpal bones. Normal carpal articulations. Normal carpometacarpal articulation of the thumb. Normal second through fifth carpometacarpal articulations. Normal visualized metacarpal bones. The soft tissue structures are unremarkable. RAD/Wrist min 3 Views IMPRESSION: Normal x-ray examination of the wrist. Electronically Signed: Ramírez Griffiths MD at 14:32 EDT ,
== END | disposition home or self-care (01) ==
PROVIDERS: PCP Family Medicine; Referring Provider Nurse Practitioner Family; Visit Provider Nurse Practitioner Family
DX: M67.80 Other specified disorders of synovium and tendon, unspecified site (principal)
CPT/HCPCS: 73110

== ENCOUNTER → 2022-06-02 | Outpatient (CLI) | payer BC, SELFPAY ==
[2022-06-02 17:38] LABS: Absolute Lymphocyte Count 3.53 X10^3/uL (0.83-4.51); Absolute Neutrophil Count 7.9 X10^3/uL (2.0-7.7); Basophil# 0.05 X10^3/uL; Basophil% 0.4 % (0-1); Eosinophil# 0.16 X10^3/uL; Eosinophils% 1.3 % (0-5); Hematocrit 42.3 % (37-47); Hemoglobin 13.7 g/dL (12.0-15.0); Lymphocyte # 3.53 X10^3/ul (0.83-4.51); Lymphocyte % 28.6 % (19-41); Mean Corp Hgb Conc 32.4 g/dL (32-36); Mean Corpuscular Hgb 30.5 pg (27.0-32.0); Mean Corpuscular Volume 94.2 fL (81-99); Mean Platelet Vol. 9.8 fl (6.2-12.0); Monocyte# 0.67 X10^3/uL; Monocyte% 5.4 % (0-10); NRBC Flagged by Analyzer 0 % (0-5); Neutrophil # 7.89 X10^3/uL (2.7-7.7); Neutrophil % 63.9 % (47-70); Platelet Count 424 K/mm3 (150-450); RBC Distribution Width SD 45.1 fl (35.1-43.9); Red Blood Count 4.49 M/mm3 (4.2-5.4); White Blood Count 12.4 K/mm3 (4.4-11.0)
[2022-06-02 18:10] LABS: ALB/GLOB Ratio 1.2 RATIO (0.9-2.4); AST(SGOT) 18 U/L (15-37); Alanine Aminotransfer ALT/SGPT 35 U/L (13-56); Albumin, Serum 4.2 g/dL (3.2-5.0); Alkaline Phosphatase 93 U/L (45-117); Anion Gap 9 (5-15); BUN 13 mg/dL (7-18); BUN/Creat Ratio 13.5 RATIO (10-20); Chloride 101 mmol/L (98-107); Cholesterol 140 mg/dL (200); Creatinine, Serum 0.96 mg/dL (0.55-1.02); EST Glomerular Filtration Rate 66 mL/min (>60); Est Glom Filt Rate - Afr Amer 80 mL/min (>60); Globulin 3.6 g/dL (2.2-4.2); Glucose 86 mg/dL (74-106); High Density Lipoprotein 45 mg/dL; Protein, Total 7.8 g/dL (6.4-8.2); Sodium Level 138 mmol/L (136-145); Thyroid Stim Hormone (TSH) 0.81 uIU/mL (0.358-3.74); Triglycerides 263 mg/dL; Very Low Density Lipoprotein 53 mg/dL (5-40)
[2022-06-02 18:34] LABS: Hemoglobin A1c 6.1 % (3.8-5.6)
== END | disposition home or self-care (01) ==
LOC: MFPLAB 14:28
PROVIDERS: PCP Family Medicine; Referring Provider Family Medicine; Visit Provider Family Medicine
DX: I10 Essential (primary) hypertension (principal); R73.02 Impaired glucose tolerance (oral)
CPT/HCPCS: 36415; 80053; 80061; 83036; 84443; 85025

== ENCOUNTER → 2022-08-12 | Outpatient (CLI) | payer BC, SELFPAY ==
--- NOTE | 2022-08-12 13:49 | BI_ITS ---
MAMMOGRAPHY - BILATERAL SCREENING REASON FOR EXAM: Female, 46 years old. Routine annual screening examination. PERTINENT HISTORY: Grandmother with breast cancer. TECHNIQUE: Digital bilateral breast gloria (3D mammographic acquisition) in the CC and MLO projections. 2-D mediolateral oblique (MLO) and craniocaudad (CC) views of both breasts were obtained. CAD: Full Field Digital Mammography with Computer Added Detection was performed. COMPARISON: Comparison is made with prior outside examination dated 03/03/2020. FINDINGS: Breast Composition: The breasts are extremely dense, which lowers the sensitivity of mammography. There are no dominant masses or suspicious calcifications. Stable benign-appearing bilateral axillary lymph nodes. No other significant abnormalities are identified. There has been no significant change since the prior study. BI/SCRN MAMM (CAD)W/GLORIA BILAT IMPRESSION: Stable bilateral screening mammogram. Yearly follow-up mammogram recommended. (A) ASSESSMENT CATEGORY: BIRADS Category 2: Benign. A letter regarding these results will be sent to the patient by the facility within 30 days. Approximately 10% of breast cancers are not detected by mammography. A normal mammogram should not delay biopsy of a clinically suspicious abnormality. [id number] Electronically Signed: Ramírez Griffiths MD at 14:54 EST ,
== END | disposition home or self-care (01) ==
LOC: OPBI 13:48
PROVIDERS: PCP Family Medicine; Referring Provider Nurse Practitioner Family; Visit Provider Nurse Practitioner Family
DX: Z12.31 Encounter for screening mammogram for malignant neoplasm of breast (principal)
CPT/HCPCS: 77063; 77067

== ENCOUNTER → 2022-09-06 | Outpatient (CLI) | payer BC, SELFPAY | END | disposition home or self-care (01) | LOC: PSN 13:57 | PROVIDERS: PCP Family Medicine; Visit Provider Nurse Practitioner Family | DX: R00.2 Palpitations (principal) | CPT/HCPCS: 93225; 93226 ==

== ENCOUNTER → 2024-01-10 | Outpatient (CLI) | payer BC, SELFPAY ==
--- NOTE | 2024-01-10 09:09 | NM_ITS ---
CLINICAL: 48-year-old female with reported history of suspected vertebral osteomyelitis. WHOLE BODY 99m Tc MDP RADIONUCLIDE BONE SCINTIGRAPHY COMPARISON: None available FINDINGS: Following the intravenous administration of 26.0 mCi of 99m Tc MDP, whole body bone images reveal: 1. Increased radiopharmaceutical concentration is noted in the 10th-12th thoracic, third lumbar vertebra and first sacral segment posteriorly on the left and right, sacroiliac joints bilaterally. 2. Enhanced uptake is demonstrated in the acromioclavicular and sternoclavicular compartments of both shoulders, the left wrist. 3. The remaining skeletal structures are scintigraphically unremarkable with normal-appearing renal images and urinary bladder activity identified. NM/Bone Scan Whole Body IMPRESSION: 1. The increase in tracer uptake noted in the thoracic and lumbar spine, and sacrum, the bilateral sacroiliac joints is most consistent with degenerative arthritis. If infection remains a diagnostic consideration, correlation with labeled leukocyte imaging with potential sulfur colloid acquisitions is recommended. 2. Degenerative arthritis is identified in the the bilateral shoulders, the left wrist. Electronically Signed: Justus Redmond DO at 9:17 EDT ,
== END | disposition home or self-care (01) ==
PROVIDERS: PCP Family Medicine; Referring Provider Orthopaedic Surgery; Visit Provider Orthopaedic Surgery
DX: M46.26 Osteomyelitis of vertebra, lumbar region (principal)
CPT/HCPCS: 78306; A9503

== ENCOUNTER → 2024-01-19 | Outpatient (CLI) | payer BC, SELFPAY ==
--- NOTE | 2024-01-19 05:45 | NM_ITS ---
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 WHOLE BODY 99m Tc HMPAO LABELED LEUKOCYTE EXAMINATION COMPARISON: Whole body bone scintigraphy dated 01/10/2024 FINDINGS: Following the intravenous administration of 22.5 mCi of 99m Tc HMPAO labeled leukocytes, whole body image acquisitions obtained at 2 hours post radiopharmaceutical administration reveal: 1. There is no evidence of abnormal increased tracer uptake in the distribution of the thoracic and lumbar spine. Special attention paid to the region of the third lumbar vertebra reveals no scintigraphic abnormalities. 2. Physiologic uptake is noted in the pulmonary blood pool, hepatic and splenic parenchyma, the visualized appendicular and axial skeletal structures. Facilitated uptake is noted in the acromioclavicular compartment of the right shoulder, the sacrum and sacral ala bilaterally. NM/Inflammatory Process WB IMPRESSION: 1. The increase in radiotracer distribution defined in the right shoulder, sacrum and sacral ala bilaterally is most consistent with activated leukocytes associated with degenerative arthritis. If infection is a diagnostic consideration in these locations, correlation with technetium sulfur colloid imaging is recommended. 2. Meticulous attention paid to the third lumbar vertebra demonstrates no scintigraphic abnormalities on the current examination. Electronically Signed: Justus Redmond DO at 9:35 EDT ,
== END | disposition home or self-care (01) ==
LOC: NM 06:01
PROVIDERS: PCP Family Medicine; Visit Provider Orthopaedic Surgery
DX: M46.26 Osteomyelitis of vertebra, lumbar region (principal)
CPT/HCPCS: 78802; A9521